=== PATIENT | male | born 1970 | race Caucasian/White ===

== ENCOUNTER 2016-09-12 07:13 | Day surgery (SDC) | payer OTHER ==
[2016-09-11 11:37] VITALS: BMI 26.5
[2016-09-12] VITALS (17 sets, daily range): BP systolic 101–131; BP diastolic 47–77; PULSE 50–74; RESP 14–24; Ht 185.4 cm; Wt 89.0 kg
[~2016-09-12] VITALS: Ht 185.4 cm; Wt 89.0 kg
[~2016-09-12 07:13] MED LIST: CEFAZOLIN 1 GM INJ ONE; CEFAZOLIN 1 GM/50 ML (PMX) 50 ML IVPB ONE
[2016-09-12] MEDS ORDERED: GLYCOPYRROLATE 0.4 MG INJ ONE (09:19)
[2016-09-12] MEDS ORDERED: PROPOFOL 40 ML ONE (09:19)
[2016-09-12] MEDS ORDERED: ROCURONIUM 50 MG INJ ONE (09:19)
[2016-09-12] MEDS ORDERED: LIDOCAINE 2% (SDV) 5 ML INJ ONE (09:19)
[2016-09-12] MEDS ORDERED: FENTAnyl 50 MCG/ML VIAL ONE (09:19)
[2016-09-12] MEDS ORDERED: SUCCINYLCHOLINE CHLORIDE 100 MG/5 ML SYG IV ONE (09:19)
[2016-09-12] MEDS ORDERED: NEOSTIGMINE 3 MG/3 ML SYRINGE ONE (09:19)
[2016-09-12] MEDS ORDERED: LIDOCAINE 2% 20 ML UROJET SYRINGE ONE (09:23)
[2016-09-12] MEDS ORDERED: BUPIVACAINE 0.25% (MPF) 30 ML INJ ONE (09:23)
--- NOTE | 2016-09-12 10:37 | HP ---
DATE OF ADMISSION: 09/12/2016 CHIEF COMPLAINT: Left testicular pain and sensation of obstruction in the urethra. HISTORY OF PRESENT ILLNESS: This patient has a longstanding history of left varicocele. He has had it for about 15 years. He has managed this problem without surgery; however, he reports that over time, his pain has become worse. His pain waxes and wanes, sometimes it is there all day. He has n ot developed testicular pain with ejaculation. However, the pain overall has become more consistent , more achy. The patient also complains of lower urinary tract symptoms. He reports that he has the sensation of something sharp in his urethra. He feels that the semen does not completely expel and that there i s a blockage in his urethra. He reports apparently in June when I had seen him this symptom and it was more pronounced than it is now; however, he reports he continues to have some sensation of s low urinary stream and obstruction in the urethra. PAST MEDICAL HISTORY: No hypertension, no diabetes. PAST SURGICAL HISTORY: Umbilical hernia repair, nasoplasty. MEDICATIONS: None. ALLERGIES: NO KNOWN DRUG ALLERGIES. SOCIAL HISTORY: No smoke, no alcohol. [employer] worker. FAMILY HISTORY: No prostate cancer. No breast cancer. PHYSICAL EXAMINATION: CONSTITUTIONAL: The patient appears to be in no acute distress. GASTROINTESTINAL: Abdomen is soft, normal bowel sounds, nondistended, nontender. Hernia exam none noted. Liver and spleen normal. GENITOURINARY: Scrotum no lesions, no edema, no erythema, mass, rash, or cysts; however bag of worm s is identified along the left hemiscrotum consistent with the patient's known varicoceles. Penis n o deformity, no lesions, no scarring. EXTREMITIES: No edema. ASSESSMENT: 1. Left varicocele symptomatic. 2. Sensation of obstruction in the urethra. 3. Slow urinary stream. RECOMMENDATIONS: 1. I have spoken with the patient in detail about the natural history and biology of varicoceles. We have also discussed his urinary symptoms. We discussed various treatment options for this proble m. Among these options, I have recommended and patient has elected to undergo a laparoscopic left s permatic vein ligation and cystoscopy with possible dilation. This procedure has been explained to the patient in detail. The risks, benefits have been discussed. He understands that risks include, but are not limited to infection, bleeding, damage to adjacent structures, heart problems, lung pro blems, possibility of the need for further surgery, DVT, PE, OR, CVA, nonresolution of symptoms, rec urrence of symptoms, need for other treatments, need for other surgeries, urethral stricture, nonres olution of urinary symptoms, testicular injury, testicular atrophy, nonresolution of testicular symp toms, recurrence of varicoceles. Infertility problems. All the patient's questions have been answe red, no guarantees given. The patient would like to proceed. Dictated By: VARUN BRUMFIELD MD SR/NTS Conf#: [id number] DID#: [id number]
[2016-09-12] MEDS ORDERED: ROPIVACAINE 0.5 % 30 ML VIAL ONE (11:08)
--- NOTE | 2016-09-12 11:43 | OPPN ---
Date/Time of Note Date/Time of Note DATE: 09/12/16 TIME: 11:40 Operative/Procedure Note Pre-Operative Diagnosis left varicocele slow stream Post-Operative Diagnosis L varicocele, intra peritoneal adhesions elevated Bladder neck Procedure Lap left spermatic vein ligation lap lysis adhesions cystoscopy Surgeon: VARUN BRUMFIELD Anesthesiologist: KELBY MEEK Findings intra peritoneal adhesions: left colon to side wall elevated BN with mild bilat lat lobe prostate enlargement Blood Usage/Administration none Implants/Grafts: Not applicable Estimated blood loss: 0 - 10 ml's Drains: Not applicable Specimens spermatic vein ath's urine for culture Anesthesia type: general VARUN BRUMFIELD Sep 12, 2016 11:43
--- NOTE | 2016-09-12 11:48 | PDOCDIS ---
Discharge Instructions CONDITION Patient Condition: Good HOME CARE INSTRUCTIONS: Diet Instructions: Regular ACTIVITY: Activity Restrictions: Slowly Increase Activity No Sexual Activity (two weeks) Bathing Restrictions: Shower FOLLOW UP/APPOINTMENTS Appointments 1 - 2 weeks SCHOOL/WORK RELEASE May return to School/Work on: Sep 17, 2016 May return to School/Work with: With Restrictions (no lifting more than 10 Lb until 09/26/16. After 09/26/16, no restrictions) VARUN BRUMFIELD Sep 12, 2016 11:48
[2016-09-12] MEDS ORDERED: CIPR500T21 PO (11:51)
[2016-09-12] MEDS ORDERED: HYDR-906 PO (11:51)
--- NOTE | 2016-09-12 12:07 | OPR ---
DATE OF OPERATION: 09/12/2016 PREOPERATIVE DIAGNOSIS: 1. Left varicocele. 2. Slow urinary stream. POSTOPERATIVE DIAGNOSES: 1. Left varicocele. 2. Slow urinary stream. 3. Mild bladder neck elevation. 4. Intraperitoneal adhesions. OPERATION PERFORMED: 1. Laparoscopic left spermatic vein ligation. 2. Flexible cystoscopy. 3. Laparoscopic lysis of adhesions. INDICATIONS FOR PROCEDURE: This patient has a history of left-sided testicular pain with large left varicoceles. He is scheduled to undergo a spermatic vein ligation performed laparoscopically. Furt thee, he has had lower urinary tract symptoms and he is scheduled to undergo a cystoscopy. Ethel schaefer has been explained to the patient in detail. Risk and benefits have been discussed. He unders tands the risks include, but are not limited to infection, bleeding, damage to adjacent structures, heart problems, lung problems, possibility of need for further surgery, DVT, PE, TX, CVA, nonresolut ion of symptoms, recurrence of symptoms, need for other treatments, need for other surgeries, contin ued testicular pain, reoccurrence of varicocele, fertility problems, testicular atrophy, vascular in jury, bowel injury, urethral stricture. All of his questions have been answered, no guarantees give n. He would like to proceed. FINDINGS: The spermatic vein within the retroperitoneum was identified. The spermatic artery was i dentified and preserved. The veins were clipped and divided. On cystoscopy, the patient exhibited mild bilateral lateral lobe prostate obstruction as well as an elevated bladder neck with 1+ trabecu lation. There was some white flaky debris within the bladder; however, no evidence of tumors, stone s or other abnormalities were seen. PROCEDURE IN DETAIL: The patient was brought to the operating room, underwent general endotracheal tube anesthesia. He was kept in a supine position. Abdomen, perineum and genitalia were prepped an d draped in the usual sterile fashion. The patient was placed in slight Trendelenburg position. Ta ble was also tilted to the right with the left side slightly up. Abdomen was insufflated supraumbil ically. Laparoscopic ports were placed. Laparoscopy was performed. Bowel was intact. The left in ternal inguinal ring was identified. The patient's left hemicolon was adhered against the abdominal wall. Therefore, lysis of adhesions was required. Adhesional bands between the pericolic fat and abdominal wall were carefully taken down, taking care not to injure the colon. Once this was done, the peritoneum over the internal inguinal ring was opened. The peritoneum over the spine spermatic cord left side was opened. Dissection was then carried onto the spermatic vein. Once the spermatic vein was identified, pulsation of artery was also identified running parallel to the vein. The vei n was carefully dissected from the surrounding structures. The artery was also identified and was c arefully teased off and bluntly dissected off the vein. This was done proximally and taken towards the internal inguinal ring. As this dissection was carried, another spermatic vein was identified c loser to the internal inguinal ring. The artery in this area was further dissected to completely ex pose the 2 main veins. There were multiple tributaries connecting the 2 main veins together. These tributaries were also dissected from their surrounding structures. Again, care was taken not to in jure the spermatic artery. Once all the veins had been skeletonized, surgical clips were placed proximally next distally. At t his point, the 2 larger veins were divided. Portions of the 2 veins were then collected and sent to pathology as spermatic vein #1 and 2. The spermatic artery was reexamined. It appeared to be intac t and pulsating well. Peritoneal cavity was reexamined. Bowel was intact. The laparoscope was the n discontinued. Laparoscopic ports were then removed under direct vision. Fascia to 4 sites were c losed with 2-0 Vicryl [id number] sutures. Subcutaneous layers were irrigated. Skin was closed with 4-0 Vicryl subcuticular stitch as well as Dermabond. Dr. Cartagena from anesthesia performed a TAP block after the cystoscopy had been finished. Attention was then paid to cystoscopy. The flexible cystoscope was placed transurethrally. Urethra appeared to be normal. No strictures were seen. Cystoscope was then further advanced into the pro state. The prostatic fossa was examined. The ejaculatory duct was intact. Bilateral lateral lobe mild obstruction was identified. Bladder neck was moderately elevated. Bladder was entered. White flaky debris was seen in the bladder. This was then irrigated out of the bladder. At this point, the mucosa was carefully examined. Ureteral orifices were orthotopic. No bladder tumors were seen. There was 1+ trabeculation. No stones were seen. Mucosa otherwise was normal. The cystoscope was then retracted back into the bladder neck and into the prostatic fossa. No stones or other abnorma lities were seen. No strictures were seen. Cystoscope was discontinued. At this point, a TAP block was performed by anesthesia. The patient was then awakened, extubated, a nd taken to the recovery room. POSTOPERATIVE CONDITION: Stable. COMPLICATIONS: None. BLOOD LOSS: Less than 10 mL. BLOOD ADMINISTERED: None. SPECIMENS SENT TO LAB: Left spermatic veins. Dictated By: VARUN BRUMFIELD MD SR/NTS Conf#: [id number] DID#: [id number]
[2016-09-12] MEDS ORDERED: OXYCODONE/ACETAMINOPHEN (5/325) TAB PO PRN (12:30)
[2016-09-12] MEDS ORDERED: ONDANSETRON 4 MG INJ IV PRN (12:30)
[2016-09-12] MEDS ORDERED: FENTAnyl 50 MCG/ML VIAL IV PRN ×2 (12:30)
[2016-09-12] MEDS ORDERED: METOCLOPRAMIDE 10 MG INJ IV PRN (12:30)
[2016-09-12] MEDS ORDERED: DIPHENHYDRAMINE 50 MG INJ IV PRN (12:30)
[2016-09-12] MEDS ORDERED: MEPERIDINE 25 MG INJ IV PRN (12:30)
[2016-09-12] MEDS ORDERED: HYDROmorphONE (0.2 MG/ML) 10ML SYG IV PRN ×3 (12:30)
--- NOTE | 2016-09-12 13:05 | DS ---
DATE OF ADMISSION: 09/12/2016 DATE OF DISCHARGE: 09/12/2016 ADMITTING DIAGNOSES: 1. Left varicocele. 2. Slow urinary stream. DISCHARGE DIAGNOSES: 1. Left varicocele. 2. Intraperitoneal adhesions. 3. Elevated bladder neck. HOSPITAL COURSE: The patient was brought to the hospital and underwent a laparoscopic left spermati c vein ligation, lysis of adhesions, and cystoscopy. He was then transferred to recovery room once the patient was stable, tolerating his diet, remaining afebrile, and pain was well controlled. He w as discharged home. DISCHARGE INSTRUCTIONS: Activity as tolerated. No heavy lifting. The patient may shower. Follow up in 1 to 2 weeks. No sexual activity for 2 weeks. MEDICATIONS: 1. Cipro 2. [place]. 3. Colace. Dictated By: VARUN BRUMFIELD MD, SR/NTS Conf#: [id number] DID#: [id number]
--- NOTE | 2016-09-12 14:24 | PDOCDIS ---
Discharge Instructions CONDITION Patient Condition: Good HOME CARE INSTRUCTIONS: Diet Instructions: Regular ACTIVITY: Activity Restrictions: Slowly Increase Activity No Sexual Activity (two weeks) Bathing Restrictions: Shower FOLLOW UP/APPOINTMENTS Appointments 1-[address] zurita office SCHOOL/WORK RELEASE May return to School/Work on: Sep 17, 2016 May return to School/Work with: With Restrictions (no lifting more than 10 Lb until 09/26/16. After 09/26/16, no restrictions) VARUN ZURITA Sep 12, 2016 14:24
--- NOTE | 2016-09-12 14:35 | PDOCDIS ---
Discharge Instructions CONDITION Patient Condition: Good HOME CARE INSTRUCTIONS: Diet Instructions: Regular ACTIVITY: Activity Restrictions: Slowly Increase Activity No Sexual Activity (two weeks) Bathing Restrictions: Shower SCHOOL/WORK RELEASE May return to School/Work on: Sep 17, 2016 May return to School/Work with: With Restrictions (no lifting more than 10 Lb until 09/26/16. After 09/26/16, no restrictions) VARUN BRUMFIELD Sep 12, 2016 14:35
== END 2016-09-12 16:20 | disposition home or self-care (01) ==
LOC: SDS 07:13
PROVIDERS: ATTEND Surgery Surgical Oncology
DX: I86.1 Scrotal varices (principal); R39.198 Other difficulties with micturition; N32.0 Bladder-neck obstruction; K66.0 Peritoneal adhesions (postprocedural) (postinfection)
CPT/HCPCS: 52000; 55550; 87086; 88305; J0330; J0690; J1170; J2405; J2710; J2795; J3010; Z7512; Z7610